=== PATIENT | male | born 1980 | race Caucasian/White ===

== ENCOUNTER 2022-06-07 19:00 | Emergency (ER) | payer SELFPAY ==
[2022-06-07 19:06] VITALS: BP 147/84; PULSE 76; TEMP 98.3; BMI 25.1
[2022-06-07] MEDS ORDERED: SODIUM CHLORIDE 1,000 ML IV STA (20:39)
[2022-06-07] MEDS ORDERED: ONDANSETRON 4 MG/2 ML VIAL IVPUSH ONE (20:43)
[2022-06-07] MEDS ORDERED: MECLIZINE HCL 25 MG TABLET (FP) PO ONE (20:44)
[2022-06-07] MEDS ORDERED: MECLIZINE HCL 25 MG TABLET (FP) ONE (20:52)
[2022-06-07] MEDS ORDERED: ONDANSETRON 4 MG/2 ML VIAL ONE (20:52)
[2022-06-07 21:18] LABS: BASO % 0.6 % (0-2.0); EOS % 0.7 % (0-4.5); HEMATOCRIT 43.4 % (35.4-49); HEMOGLOBIN 14.9 GM/dL (11.7-16.9); LYMPH % 14.5 % (8-40); MCHC 34.3 g/dl (32.0-35.9); MEAN CELL VOLUME 90.2 fl (80-96); MEAN PLT VOLUME 9.5 fl (7.5-11.1); MONO % 5.4 % (3.8-10.2); NEUT % 78.8 % (42.8-82.8); PLATELET COUNT 221 10^3/uL (134-434); RBC 4.81 M/mm3 (4.00-5.60); RDW 14.2 % (11.9-15.9); WHITE BLOOD COUNT 7.7 K/mm3 (4.0-10.0)
[2022-06-07 21:38] LABS: CALCIUM 9.1 mg/dL (8.5-10.1)
[2022-06-07 21:39] LABS: ALBUMIN 4.4 g/dl (3.4-5.0); BLOOD UREA NITROGEN 11.2 mg/dL (7-18)
[2022-06-07 21:42] LABS: CREATININE 0.7 mg/dL (0.55-1.3)
[2022-06-07 21:43] LABS: BILIRUBIN,TOTAL 0.3 mg/dL (0.2-1); TOT PROT 7.6 g/dl (6.4-8.2)
== END 2022-06-07 22:07 | disposition home or self-care (01) ==
LOC: JERFT 19:00
DX: R11.2 Nausea with vomiting, unspecified (principal); R19.7 Diarrhea, unspecified; R42 Dizziness and giddiness
CPT/HCPCS: 36415; 80053; 83690; 85025; 99284-25

== ENCOUNTER 2022-07-01 16:19 | Emergency (ER) | payer SELFPAY ==
[2022-07-01 17:03] VITALS: BP 127/82; PULSE 75; RESP 20; BMI 23.7
[2022-07-01 17:20] VITALS: TEMP 98.1
== END 2022-07-01 17:25 | disposition home or self-care (01) ==
LOC: JERFT 16:19 → JER 16:19 → JERFT 17:25
DX: H11.31 Conjunctival hemorrhage, right eye (principal)
CPT/HCPCS: 99281-25

== ENCOUNTER 2024-02-04 12:28 | Emergency (ER) | payer SELFPAY ==
[2024-02-04 12:34] VITALS: RESP 18; BMI 26.4
[2024-02-04] MEDS ORDERED: MAG HYDROX/AL HYDROX/SIMETH 30 ML UNIT-DOSE CUP ONE (15:25)
[2024-02-04] MEDS ORDERED: LIDOCAINE VISCOUS 2% ORAL/TOP 15 ML UNIT-DOSE CUP ONE (15:25)
[2024-02-04] MEDS: MAG HYDROX/AL HYDROX/SIMETH 30 ML UNIT-DOSE CUP PO ONE (15:45)
[2024-02-04] MEDS: LIDOCAINE VISCOUS 2% ORAL/TOP 15 ML UNIT-DOSE CUP MM ONE (15:45)
[2024-02-04 15:48] LABS: BASO % 0.8 % (0-2.0); EOS % 1.1 % (0-4.5); LYMPH % 27.1 % (8-40); MCH 30.8 pg (25.7-33.7); MCHC 33.4 g/dl (32.0-35.9); MEAN CELL VOLUME 92.2 fl (80-96); MONO % 6.2 % (3.8-10.2); NEUT % 64.8 % (42.8-82.8); PLATELET COUNT 233 10^3/uL (134-434); RBC 4.88 M/mm3 (4.00-5.60); RDW 14.9 % (11.9-15.9); WHITE BLOOD COUNT 5.3 K/mm3 (4.0-10.0)
[2024-02-04 16:15] LABS: CHLORIDE 105 mmol/L (98-107); SODIUM 121 mmol/L (136-145)
[2024-02-04 16:19] LABS: INR 1.08 (0.83-1.09); PROTHROMBIN TIME (PATIENT) 12.5 SEC (9.7-13.0)
[2024-02-04 16:20] LABS: ALBUMIN 3.8 g/dl (3.4-5.0)
[2024-02-04 16:21] LABS: BLOOD UREA NITROGEN 14.3 mg/dL (7-18)
[2024-02-04 16:22] LABS: CALCIUM 8.8 mg/dL (8.5-10.1); CO2 25 mmol/L (21-32); GLUCOSE,RANDOM 80 mg/dL (74-106)
[2024-02-04 16:24] LABS: ALK PHOS 90 U/L (45-117)
[2024-02-04 16:25] LABS: CREATININE 0.8 mg/dL (0.55-1.3)
[2024-02-04 16:27] LABS: TOT PROT 9.1 g/dl (6.4-8.2)
[2024-02-04 16:52] LABS: ANION GAP -9 mmol/L (4-13); POTASSIUM > 10.0 mmol/L (3.5-5.1)
[2024-02-04 16:55] VITALS: BP 135/86; PULSE 66; TEMP 98.4
[2024-02-04 18:17] LABS: POTASSIUM 3.5 mmol/L (3.5-5.1)
[2024-02-04 18:18] LABS: CALCIUM 8.8 mg/dL (8.5-10.1)
[2024-02-04 18:19] LABS: BLOOD UREA NITROGEN 14.4 mg/dL (7-18)
[2024-02-04 18:22] LABS: CREATININE 0.7 mg/dL (0.55-1.3)
== END 2024-02-04 18:40 | disposition home or self-care (01) ==
LOC: JER 12:28
DX: R10.12 Left upper quadrant pain (principal); K29.70 Gastritis, unspecified, without bleeding; R11.0 Nausea
CPT/HCPCS: 36415; 71046-TC-FY; 74177-TC; 80048; 80053; 83690; 84484; 85025; 85610; 85730; 93005; 93010; 99285-25; Q9967

== ENCOUNTER 2024-08-05 11:00 | Emergency (ER) | payer OTHER ==
[2024-08-05 11:05] VITALS: BP 124/74; PULSE 73; RESP 18; TEMP 98.2; BMI 64.0
[2024-08-05] MEDS ORDERED: ACETAMINOPHEN INJECTION 100 ML ONE (12:55)
[2024-08-05] MEDS: ACETAMINOPHEN 1000 MG/100 ML BAG IVPB ONE (13:13)
[2024-08-05] MEDS: SODIUM CHLORIDE 0.9% 500 ML INFUS.BAG IV ONE (13:13)
[2024-08-05 13:31] LABS: EOS % 2.4 % (0-4.5); HEMATOCRIT 42.8 % (35.4-49); HEMOGLOBIN 14.5 GM/dL (11.7-16.9); LYMPH % 22.5 % (8-40); MCH 30.9 pg (25.7-33.7); MCHC 33.9 g/dl (32.0-35.9); MEAN CELL VOLUME 91.3 fl (80-96); MEAN PLT VOLUME 9.3 fl (7.5-11.1); MONO % 7.6 % (3.8-10.2); NEUT % 66.5 % (42.8-82.8); PLATELET COUNT 222 10^3/uL (134-434); RBC 4.68 M/mm3 (4.00-5.60); RDW 14.5 % (11.9-15.9); WHITE BLOOD COUNT 4.5 K/mm3 (4.0-10.0)
[2024-08-05 13:54] LABS: ALBUMIN 4.1 g/dl (3.4-5.0); BLOOD UREA NITROGEN 14.8 mg/dL (7-18); CALCIUM 9.2 mg/dL (8.5-10.1)
[2024-08-05 13:58] LABS: CREATININE 0.9 mg/dL (0.55-1.3)
[2024-08-05 13:59] LABS: BILIRUBIN,TOTAL 0.3 mg/dL (0.2-1)
== END 2024-08-05 17:20 | disposition home or self-care (01) ==
LOC: JER 11:00
PROC: 3E033NZ Introduction of Analgesics, Hypnotics, Sedatives into Peripheral Vein, Percutaneous Approach (ICD-10-PCS; principal; 2024-08-05)
DX: R10.12 Left upper quadrant pain (principal); R19.7 Diarrhea, unspecified; Z20.822 Contact with and (suspected) exposure to COVID-19
CPT/HCPCS: 0241U-QW; 36415; 74177-TC; 80053; 83690; 85025; 99285-25; J0131; Q9967